=== PATIENT | female | born 1975 | race Caucasian/White ===

== ENCOUNTER 2017-11-19 13:29 | Emergency (ER) | payer BC ==
[~2017-11-19] VITALS: Ht 165.1 cm; Wt 109.5 kg
[2017-11-19 13:48] VITALS: Ht 165.1 cm; Wt 109.5 kg
[2017-11-19 14:57] VITALS: BP 140/69
== END 2017-11-19 14:57 | disposition home or self-care (01) ==
LOC: ED 13:29
DX: S00.03XA Contusion of scalp, initial encounter (principal); Z88.8 Allergy status to other drugs, medicaments and biological substances; W17.89XA Other fall from one level to another, initial encounter; Y93.89 Activity, other specified; Y92.89 Other specified places as the place of occurrence of the external cause; Y99.8 Other external cause status

== ENCOUNTER 2018-01-06 12:27 | Emergency (ER) | payer BC ==
[~2018-01-06] VITALS: Ht 165.1 cm; Wt 112.5 kg
[2018-01-06 12:29] VITALS: Ht 165.1 cm; Wt 112.5 kg
[2018-01-06 13:13] LABS: BASOPHIL % 0.8 % (0-2); PLATELET COUNT 284 x10^3mcL (130-400); RED CELL DISTRIBUTION WIDTH 13.4 % (11.5-14.5)
[2018-01-06 13:19] LABS: CALCIUM 9.1 mg/dL (8.5-10.1); CARBON DIOXIDE 30.3 mmol/L (21-32); CHLORIDE SERUM 106 mmol/L (98-107); CREATININE SERUM 0.8 mg/dL (0.6-1.0); GFR1 > 60 mL/min; GLUCOSE SERUM 98 mg/dL (74-106); POTASSIUM SERUM 3.8 mmol/L (3.5-5.1); SODIUM SERUM 139 mmol/L (136-145)
[2018-01-06 13:23] LABS: ALBUMIN 3.4 g/dL (3.4-5.0); ALKALINE PHOSPHATASE 93 U/L (46-116); ALT/SGPT 69 U/L (14-59); AST/SGOT 28 U/L (15-37); BILIRUBIN TOTAL 0.33 mg/dL (0.20-1.00); TOTAL PROTEIN, SERUM 7.6 g/dL (6.4-8.2)
[2018-01-06 13:57] VITALS: BP 125/64
== END 2018-01-06 13:57 | disposition home or self-care (01) ==
LOC: ED 12:27
PROVIDERS: Emergency Medicine
DX: R42 Dizziness and giddiness (principal); R51 Headache; R20.2 Paresthesia of skin
CPT/HCPCS: 36415; Q0092; Q0162